=== PATIENT | male | born 1945 | race Caucasian/White ===

== ENCOUNTER → 2017-05-12 | Outpatient (CLI) | payer OTHER ==
[~2017-05-12] MED LIST: ALLERGY-TIME4 MG PO; ASPIRIN EC81 M1 PO; ASPIRIN81 M2 PO; B-122500 MCG SUBLING; B12INJ PO; BAYER CHEWABLE81 MG PO; CARVEDILOL25 MG PO; CARVEDILOL6.25 MG PO; CRESTOR40 MG PO; FISH OIL 1,0001 EAC5 PO; FISH OIL 1,2001 EAC4 PO; FUROSEMIDE 40 M40 MG PO; K-DUR10 MEQ PO; L-LYSINE 5500 MG/1 T PO; LASIX 20 MG TAB20 MG PO; MULTIVITAMINS PO; PHENTERMINE H37.5 MG PO; POTASSIUM20 PO; RANITIDINE 150150 M1 PO; RANITIDINE HCL300 M1 PO; VITAMIN D3400 UNI1 PO; ZINC CHELATE50 MG PO; ZINC GLUCONATE PO; [UNRECOGNIZED DRUG - OTHER]; [UNRECOGNIZED DRUG - OTHER] PO
--- NOTE | ~2017-05-12 | 2DMMODE ---
[facility] [place] [address] 2 D/M-MODE ECHOCARDIOGRAM Name: DAREN MARIE Room #: [facility]#: [id number] Admission: 05/12/17 Attend Phys: Ignacio Garza MD Discharge: Date of : 43 Date of Service: 05/13/17 0948 Report #: [id number] THIS REPORT FOR: //name// APPROVED REPORT Study performed: 05/12/2017 14:05:56 EXAM: Comprehensive 2D, Doppler, and color-flow Echocardiogram Patient Location: Out-Patient Status: routine BSA: 2.21 HR: 72 bpm BP: 115/88 mmHg Rhythm: Atrial Fibrillation Other Information Study Quality: Good Indications Atrial Fibrillation Chest Pain Hx: HTN, HLD, DM 2D Dimensions LVEF(%): 71.56 (>50%) IVSd: 10.91 (7-11mm) LVOT Diam: 20.25 (18-24mm) LVDd: 52.95 mm PWd: 10.78 (7-11mm) Ascending Ao: 37.32 (22-36mm) LVDs: 31.17 (25-40mm) Aortic Root: 37.22 mm Webb's LVEF: 71.56 % Volumes Left Atrial Volume (Systole) Single Plane 4CH: 70.35 mL Single Plane 2CH: 58.52 mL LA ESV Index: 33.00 mL/m2 Aortic Valve AoV Peak Werner.: 1.48 m/s AO Peak Gr.: 8.74 mmHg LVOT Max P.65 mmHg LVOT Max V: 0.81 m/s ELIAS Vmax: 1.77 cm2 Mitral Valve [facility] [address] [address] 2 D/M-MODE ECHOCARDIOGRAM Name: FRANKDAREN Trent Room #: [facility]#: [id number] Admission: 05/12/17 Attend Phys: Ignacio Garza MD Discharge: Date of : 43 Date of Service: 05/13/17 0948 Report #: [id number] E/A Ratio: 0.8 MV Decel. Time: 219.99 ms MV E Max Werner.: 0.64 m/s MV A Werner.: 0.77 m/s MV PHT: 63.80 ms IVRT: 59.98 ms Pulmonary Valve PV Peak Werner.: 1.04 m/s PV Peak Gr.: 4.35 mmHg Pulmonary Vein P Vein S: 0.56 m/s P Vein A: 0.20 m/s P Vein D: 0.47 m/s P Vein A Dur.: 99.2 msec P Vein S/D Ratio: 1.19 Tricuspid Valve TR Peak Werner.: 2.32 m/s RAP Estimate: 5.00 mmHg TR Peak Gr.: 21.53 mmHg PA Pressure: 27.00 mmHg Left Ventricle The left ventricle is normal size. There is normal left ventricular wall thickness. The left ventricular systolic function is normal. LVEF is 55-60%. Grade I - abnormal relaxation pattern. Right Ventricle The right ventricle is normal size. The right ventricular systolic function is normal. Atria The left atrium size is normal. The right atrium size is normal. Aortic Valve The aortic valve is normal in structure. No aortic regurgitation is present. There is no aortic valvular stenosis. Mitral Valve The mitral valve is normal in structure. There is mitral annular calcification. Trace mitral regurgitation. No evidence of mitral valve stenosis. Tricuspid Valve The tricuspid valve is normal in structure. There is trace to mild tricuspid regurgitation. The right atrial pressure is estimated at [address] [address] 2 D/M-MODE ECHOCARDIOGRAM Name: DAREN MARIE Room #: [facility]#: [id number] Admission: 05/12/17 Attend Phys: Ignacio Garza MD Discharge: Date of : 43 Date of Service: 05/13/17 0948 Report #: [id number] Pulmonic Valve The pulmonary valve is normal in structure. There is no pulmonic valvular regurgitation. Great Vessels Aortic root is borderline dilated. The ascending aorta is borderline dilated. IVC is normal in size and collapses >50% with inspiration, with an estimated PAP of 27mmHg. Pericardium There is no pericardial effusion. <Conclusion> The left ventricle is normal size. The left ventricular systolic function is normal. Grade I - abnormal relaxation pattern. The right ventricle is normal size. The aortic valve is normal in structure. Trace mitral regurgitation. There is trace to mild tricuspid regurgitation. The right atrial pressure is estimated at 27 mmHg. <ELECTRONICALLY SIGNED> By: Ignacio Garza MD 05/13/17947 7 7 Ignacio Garza MD /INF
== END ==
LOC: CV 13:02
DX: I48.91 Unspecified atrial fibrillation (principal); I10 Essential (primary) hypertension; E11.9 Type 2 diabetes mellitus without complications

== ENCOUNTER → 2017-05-13 | Outpatient (CLI) | payer OTHER | LOC: NUC | DX: N28.1 Cyst of kidney, acquired (principal); R07.89 Other chest pain ==

== ENCOUNTER → 2019-11-13 | Outpatient (CLI) | payer OTHER | LOC: SJCVC 13:08 | DX: I45.2 Bifascicular block (principal); R94.31 Abnormal electrocardiogram [ECG] [EKG]; I11.9 Hypertensive heart disease without heart failure; I48.91 Unspecified atrial fibrillation; E11.9 Type 2 diabetes mellitus without complications; E78.5 Hyperlipidemia, unspecified; G47.30 Sleep apnea, unspecified; Z95.0 Presence of cardiac pacemaker; Z90.49 Acquired absence of other specified parts of digestive tract; Z79.899 Other long term (current) drug therapy; Z87.891 Personal history of nicotine dependence ==

== ENCOUNTER → 2020-05-15 | Outpatient (CLI) | payer OTHER ==
[~2020-05-15] MED LIST changes: +FAMOTIDINE 20 M20 MG PO; +JANTOVEN10 MG PO; +METFORMIN HCL500 M3 PO; +PROBIOTIC1 EAC7 PO
== END ==
LOC: SJCVCIMAG 10:43
PROVIDERS: ATTEND Internal Medicine Cardiovascular Disease
DX: Z45.018 Encounter for adjustment and management of other part of cardiac pacemaker (principal); I45.10 Unspecified right bundle-branch block; R00.0 Tachycardia, unspecified; I48.91 Unspecified atrial fibrillation; I44.2 Atrioventricular block, complete; I10 Essential (primary) hypertension; E78.5 Hyperlipidemia, unspecified; E11.9 Type 2 diabetes mellitus without complications; R60.9 Edema, unspecified; Z79.01 Long term (current) use of anticoagulants; Z82.49 Family history of ischemic heart disease and other diseases of the circulatory system; Z87.891 Personal history of nicotine dependence; Z79.899 Other long term (current) drug therapy

== ENCOUNTER 2020-09-06 12:52 | Emergency (ER) | payer OTHER ==
[~2020-09-06] VITALS: Ht 180.3 cm; Wt 107.5 kg
[2020-09-06 14:27] LABS: ABSOLUTE NEUTROPHILS 3.7 thou/uL (1.4-8.2); BASOPHILS 0.3 % (0.0-2.0); EOSINOPHILS 1.4 % (0.0-3.0); HEMATOCRIT 43.4 % (42.0-52.0); LYMPHOCYTES 15.2 % (24.0-44.0); MCH 28.2 pg (26.0-34.0); MCHC 32.3 g/dL (28.0-37.0); MCV 87.3 fL (80.0-100.0); MONOCYTES 17.6 % (1.0-8.0); PLATELET COUNT 153 thou/uL (150-400); POLYS 65.5 % (36.0-66.0); RBC 4.97 mil/uL (4.50-6.00); RDW 14.2 % (10.5-14.5); WBC 5.7 thou/uL (4.0-11.0)
[2020-09-06 14:35] LABS: CALCIUM 8.6 mg/dL (8.5-10.1); CREATININE 1.9 mg/dL (0.7-1.3); MAGNESIUM 1.7 mg/dL (1.8-2.4); POTASSIUM 4.7 mmol/L (3.5-5.1)
[2020-09-06 14:51] LABS: INR 3.8; PROTIME 39.3 Seconds (9.3-11.4)
[2020-09-06 16:38] VITALS: BP 107/52
--- NOTE | 2020-09-07 11:17 | EKG ---
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 : 1945 Requested By: Mansoor Calero Order Number: [id number] MD: Wilian Beard Measurements Intervals [place] Rate: 88 P: 48 CT: 132 QRS: -59 QRSD: 133 T: 16 QT: 381 QTc: 461 Interpretive Statements Sinus rhythm RBBB and LAFB Baseline wander in lead(s) V1,V2 Compared to ECG 02/18/2020 13:26:54 No significant changes Electronically Signed On 09-07-2020 11:17:06 AUTO ELECTRICIAN by Wilian Beard [email or web address] <ELECTRONICALLY SIGNED> By: Wilain Beard MD, [facility] 09/07/20 1117 1359 1359 Wilian Beard MD, FACC /EPI
== END 2020-09-06 16:40 | disposition short-term general hospital (02) ==
LOC: ER 12:52
PROVIDERS: Emergency Medicine
DX: H54.62 Unqualified visual loss, left eye, normal vision right eye (principal); Z20.828 Contact with and (suspected) exposure to other viral communicable diseases; R19.7 Diarrhea, unspecified; I10 Essential (primary) hypertension; Z87.891 Personal history of nicotine dependence; Z79.01 Long term (current) use of anticoagulants; Z79.899 Other long term (current) drug therapy; Z95.0 Presence of cardiac pacemaker

== ENCOUNTER 2020-09-12 18:20 | Inpatient (IN) | payer OTHER ==
[~2020-09-12] VITALS: Ht 180.3 cm; Wt 100.7 kg
--- NOTE | ~2020-09-12 | O ---
[facility] [place] [address] OPERATIVE REPORT Name: DAREN MARIE Room #: 211-P ADM IN M.R.#: [id number] Admission: 09/12/20 Attend Phys: Wayne Dillon MD Discharge: Date of : 43 Report #: [id number] THIS REPORT FOR: cc: FAM - No family physician/PCP FAM - No family physician/PCP Venkat Valdez MD ~ DATE OF SERVICE: 09/16/2020 PREOPERATIVE DIAGNOSIS: Small bowel mass. POSTOPERATIVE DIAGNOSIS: Small bowel diverticulum. OPERATION: Diagnostic laparoscopy with laparoscopic small bowel resection with single anastomosis. SURGEON: Venkat Valdez MD ANESTHESIA: General. ESTIMATED BLOOD LOSS: 10 mL SPECIMEN: Small bowel. DESCRIPTION OF PROCEDURE: After informed consent was obtained, the patient was brought to the operating room and placed supine. SCDs were placed and working, preoperative antibiotics were administered, general anesthesia was induced. The abdomen was prepped and draped in the usual sterile fashion. A 10 mm incision was made above the umbilicus. Fascia was incised and a trocar was placed. Pneumoperitoneum was established. A right upper quadrant and left lower quadrant 5 mm trocars were placed under direct vision. The omentum was then swept superiorly. This allowed visualization of the ligament of Treitz. The small bowel was then run from the ligament of Treitz to the cecum under direct vision. Using atraumatic graspers, I ran the small bowel. Approximately 60 cm from the ligament of Treitz, there was an area with multiple small bowel diverticuli. There was one large diverticulum. There was hard material inside the diverticulum. This corresponded with the CT findings. I then extended the umbilical incision superiorly approximately 5 cm. I was then able to exteriorize the small bowel. Small bowel was brought out into the field. I transected proximal and distal to this diverticulum approximately 25 cm on each side. He did have other areas of diverticuli in the proximal small bowel. The mesentery was then ligated using the LigaSure device. There was excellent hemostasis. The specimen was removed. I then performed a [id number] functional end-to-end anastomosis. Small bowel was brought into apposition [id number]. It was stapled with a RYLEE blue load [address] [address] OPERATIVE REPORT Name: DAREN MARIE Room #: 211-P [facility] IN M.R.#: [id number] Admission: 09/12/20 Attend Phys: Wayne Dillon MD Discharge: Date of : 43 Report #: [id number] common enteroenterostomy was closed with a RYLEE-75 stapler as well. There was good application of the sahara without crossing the staple lines. The mesentery was then closed with interrupted 3-0 silk. The anastomosis was placed back into the abdomen. The fascia was closed with a running 0 PDS suture. Skin was closed with 4-0 Monocryl. Incisions were dressed with Steri-Strips. COMPLICATIONS: None. DISPOSITION: The patient was taken to recovery in satisfactory condition. By: 1338 1345 Venkat Valdez MD /nt
[2020-09-12 18:26] VITALS: BP 111/61
[2020-09-12 21:47] LABS: ABSOLUTE NEUTROPHILS 9.2 thou/uL (1.4-8.2); BASOPHILS 0.4 % (0.0-2.0); EOSINOPHILS 0.9 % (0.0-3.0); HEMATOCRIT 34.9 % (42.0-52.0); HEMOGLOBIN 11.4 gm/dL (14.0-18.0); LYMPHOCYTES 10.4 % (24.0-44.0); MCH 27.9 pg (26.0-34.0); MCHC 32.7 g/dL (28.0-37.0); MCV 85.4 fL (80.0-100.0); MONOCYTES 8.7 % (1.0-8.0); PLATELET COUNT 208 thou/uL (150-400); POLYS 79.6 % (36.0-66.0); RBC 4.09 mil/uL (4.50-6.00); RDW 13.6 % (10.5-14.5); WBC 11.5 thou/uL (4.0-11.0)
[2020-09-12 21:56] LABS: ANION GAP 6 mmol/L (7-16); BUN 42 mg/dL (7-18); CALCIUM 9.2 mg/dL (8.5-10.1); CHLORIDE 104 mmol/L (98-107); CO2 29 mmol/L (21-32); CREATININE 1.3 mg/dL (0.7-1.3); GLUCOSE 107 mg/dL (74-106); SODIUM 139 mmol/L (136-145)
[2020-09-12 22:02] LABS: ALBUMIN 2.9 g/dL (3.4-5.0); DIRECT BILIRUBIN < 0.1 mg/dL (<0.1-0.2); LIPASE 78 U/L (73-393); SGOT 22 U/L (15-37); SGPT 26 U/L (16-63); TOTAL BILIRUBIN 0.4 mg/dL (0.2-1.0); TOTAL PROTEIN 6.3 g/dL (6.4-8.2)
[2020-09-12 22:03] LABS: APTT 66.2 Seconds (24.5-32.8)
[2020-09-12 22:17] LABS: INR 14.4
[2020-09-12 22:47] VITALS: BP 111/61
[2020-09-12 23:13] VITALS: BP 111/61
[2020-09-12 23:39] VITALS: BP 121/67
[2020-09-12 23:54] LABS: PROTIME 153.8 Seconds (9.3-11.4)
[2020-09-13 00:02] LABS: INR 14.9
[2020-09-13 03:58] LABS: HEMATOCRIT 29.7 % (42.0-52.0); HEMOGLOBIN 9.9 gm/dL (14.0-18.0); MCH 28.8 pg (26.0-34.0); MCHC 33.2 g/dL (28.0-37.0); MCV 86.7 fL (80.0-100.0); RBC 3.43 mil/uL (4.50-6.00); RDW 13.7 % (10.5-14.5)
[2020-09-13 03:59] LABS: CALCIUM 8.5 mg/dL (8.5-10.1); CREATININE 1.3 mg/dL (0.7-1.3); POTASSIUM 4.4 mmol/L (3.5-5.1)
[2020-09-13 04:45] VITALS: BP 115/70
--- NOTE | 2020-09-13 06:45 | NUR ---
PT ARRIVED TO ROOM 211 FROM ER C/O ABD PAIN PRN PAIN MED GIVEN IV FLUIDS INFUSING, PROTONIX GTT STARTED, SCDS PLACED, REMINDED PT HE WAS NPO AFTER MNOC, HAT IN BATHROOM FOR STOOL SAMPLES OB COLLECTED AND SENT TO LAB, INR REMAINS ELEVATED, RESTING QUIETLY IN ROOM, WILL CON'T TO MONITOR PER PPOC.
[2020-09-13 11:40] VITALS: BP 125/80
[2020-09-13 15:34] LABS: PROTIME 20.7 Seconds (9.3-11.4)
[2020-09-13 16:31] VITALS: BP 102/74
--- NOTE | 2020-09-13 17:29 | NUR ---
ASSESSMENT CHARTED - MEDS PER NOV - GIVEN VIT K IV ORDERED - INR POST VIT K DOWN TO 2.0. PT UP TO THE BATHROOMTO HAD STOOL AND PASSES ONLY GAS. UNABLE to sent spec to lab. MARAH CLEAR LIQUID DIET. FLUIDS AND ROTONIX CONTIINUE ORDERED. PT AMBULATED TO BATHROOM WITH STANDBY ASSIST. INTO SEE PATIENT THIS SHIFT. PATIENT AT TIME MAKES SOME QUESTIONALBE COMMENTS - UNSURE IF THIS IS DUE TO BE HARD OF HEARING OR MENTAK STATUS. PT WITH NO CO'S PAIN OF NAUSEA. NO CO'S AT THE PRESENT TIME.
[2020-09-13 20:19] VITALS: BP 120/68
[2020-09-14 00:32] VITALS: BP 117/65
[2020-09-14 04:16] LABS: HEMATOCRIT 28.1 % (42.0-52.0); MCHC 32.2 g/dL (28.0-37.0); MCV 90.2 fL (80.0-100.0); RBC 3.11 mil/uL (4.50-6.00); RDW 14.2 % (10.5-14.5); WBC 8.7 thou/uL (4.0-11.0)
[2020-09-14 04:25] LABS: INR 1.4; PROTIME 14.6 Seconds (9.3-11.4)
[2020-09-14 04:37] LABS: ALBUMIN 2.1 g/dL (3.4-5.0); CALCIUM 8.3 mg/dL (8.5-10.1); CREATININE 1.2 mg/dL (0.7-1.3); POTASSIUM 4.7 mmol/L (3.5-5.1)
[2020-09-14 05:00] VITALS: BP 122/74
--- NOTE | 2020-09-14 05:52 | NUR ---
pt resting quietly in room until he awoke confused not knowing where he was, incont of urine, reoriented and now up in chair watching tv, no c/o pain, vss, remains npo since mnoc for possible surg. today monitering labs, will con't to monitor per ppoc.
[2020-09-14 07:00] VITALS: BP 120/68
[2020-09-14 11:00] VITALS: BP 111/71
[2020-09-14 16:00] VITALS: BP 126/81
--- NOTE | 2020-09-14 17:27 | NUR ---
ASSESSMENT CHARTED - IV FLUIDS AND PROTONIX CONTINUE ORDERED - GIVEN GLUCOSE GEL FOR BLLOD SUGAR OF 71 AT LUNCH - 79 AT DINNER. ONE QUESTTIONS MENTATION AT TIMES. HE IS ORIENTED TO TIME , PLACE ETC BUT CONVERSTAION WITH HIM SEEMS TO NOT FLOW WELL. HE ASKS TOTALLY OFF POINT QUESTIONS AND ASKS THE SAME QUESTION OVER AND OVER AGIAN - WHEN ONE TELLS THE PATIENT THAT HIS CONVERSTAION IS "OFF" HE LAUGHS TO TRY AND COVER IT UP OR GIVES REASONS THAT ARE NOT VALID LIKE " I AM DEHYDRATED", THERE IS SOMETHING THAT IS JUST NOT RIGHT. UP TO THE BATHROOM - HAD BM - BLOOD PRESENT - SPEC SENT TO THE LAB. PT AT THE BEDSIDE FOR THE AFTERNOON. SHE AT TIMES CAN APPEAR MENTATION DELAROSA LIKE HER . PT AND WATCHIING TV AT THE PRESENT TIME.
[2020-09-14 19:00] VITALS: BP 136/53
[2020-09-15 04:00] VITALS: BP 114/74
--- NOTE | 2020-09-15 04:55 | NUR ---
ASSESSMENTS CHARTED, MEDS CHARTED GIVEN. PATIENT RESTING IN BED DURING SHIFT. ON PROTONIX AND MAINTENANCE FLUIDS DURING SHIFT. ON 5 LITERS NASAL CANNULA AT NIGHT. LABS CAME BACK NEGATIVE FOR DIGESTIVE TRACK INFECTIONS. PATIENT WAS CLEARED BY CARDIOLOGY FOR SURGERY. NOW WAITING FOR SURGERY SCHEDULE. FALL PRECAUTIONS IN PLACE DURING SHIFT. DENIED PAIN.
[2020-09-15 07:23] VITALS: BP 123/78
[2020-09-15 10:25] LABS: HEMATOCRIT 29.4 % (42.0-52.0); HEMOGLOBIN 9.5 gm/dL (14.0-18.0); MCH 28.3 pg (26.0-34.0); MCHC 32.4 g/dL (28.0-37.0); MCV 87.6 fL (80.0-100.0); RBC 3.35 mil/uL (4.50-6.00); RDW 13.9 % (10.5-14.5); WBC 8.2 thou/uL (4.0-11.0)
[2020-09-15 11:25] VITALS: BP 111/67
--- NOTE | 2020-09-15 11:39 | EKG ---
[address] [facility] [address] ELECTROCARDIOGRAM REPORT Name: TERESEDAREN BLACKMON Room #: 211- ADM IN M.R.#: [id number] Admission: 09/12/20 Attend Phys: Wayne Dillon MD Discharge: Date of : 43 Report #: [id number] [facility] Test Date: 2020-09-15 Test Time: 11:06:14 Pat Name: DAREN MARIE Department: Room: 211 P Gender: M Prospect Manager: : 1945 Requested By: Ramesh Beebe Order Number: [id number] MD: Ramesh Beebe Measurements Intervals [place] Rate: 67 P: 57 MO: 136 QRS: -54 QRSD: 134 T: 5 QT: 406 QTc: 429 Interpretive Statements Sinus rhythm RBBB and LAFB Baseline wander in lead(s) V1,V5 Compared to ECG 09/06/2020 13:59:20 No significant changes Electronically Signed On 09-15-2020 11:38:49 CARCASS TRIMMER by Ramesh Beebe [email or web address] <ELECTRONICALLY SIGNED> By: Ramesh Beebe MD 09/15/20 1138 1106 1106 Ramesh Beebe MD /EPI
[2020-09-15 17:15] VITALS: BP 120/76
--- NOTE | 2020-09-15 18:37 | NUR ---
ASSUMMED PT CARE AT APPROXIMATELY 0700. PT A&O X4. ASSESSMENT CHARTED. FALL PRECAUTIONS IN PLACE. PT DENIES HAVING CHEST PAIN. PT DENIES HAVING SOB. PT DENIES HAVING ACUTE PAIN. VITAL SIGNS STABLE. BLOOD SUGARS STABLE. EDUCATED PT AND PT'S FAMILY ABOUT POC. PT'S AND PT'S FAMILY STATED UNDERSTANDING AND DENIED HAVING FURTHER QUESTIONS. INFORMED DR. ZAMORA/GI ABOUT PT HAVING A LARGE BLACK TARRY STOOL. INFORMED DR. ZAMORA OF PT'S HGB. DR. ZAMORA STATED UNDERSTANDING AND DENIED HAVING FURTHER ORDERS. PT UP TO CHAIR THROUGHOUT SHIFT. PT COMFORTABLE, PT DENIES HAVING FURTHER CONCERNS.
[2020-09-15 20:20] VITALS: BP 125/78
[2020-09-16 04:45] VITALS: BP 103/57
--- NOTE | 2020-09-16 06:43 | NUR ---
ASSESSMENTS CHARTED, MEDS CHARTED GIVEN. PATIENT HAS BEEN NPO SINCE MIDNIGHT FOR SURGERY TODAY. A ABDOMINAL MASS WAS FOUND. YESTERDAY HAD TARRY STOOL. DENIED PAIN. FALL PRECAUTIONS IN PLACE DURING SHIFT.
[2020-09-16 08:00] VITALS: BP 109/54
[2020-09-16 11:27] LABS: INR 1.5; PROTIME 15.4 Seconds (9.3-11.4)
--- NOTE | 2020-09-16 12:20 | NUR ---
Bpci letter issued to patient in conjunction with admission packet copy given by registration.
[2020-09-16 14:22] VITALS: BP 90/53
--- NOTE | 2020-09-16 19:46 | NUR ---
PATIENT TRANSFERRED FROM [address] [place] [address] REPORT RECEIVED FROM BRIANA/ARIS. PATIENT ALERT AND ORIENTED X 4. PATIENT ON BEDREST, DUE TO PROCEDURE LAP WITH SMALL BOWEL RESECTION. PATIENT ARRIVED ON THE UNIT ABOUT 1800. NO C/O PAIN JUST C/O SORENESS. PATIENT IS NPO AT THIS TIME. REPORT GIVEN TO BRIDGET/ARIS.
[2020-09-16 20:13] VITALS: BP 104/70
--- NOTE | 2020-09-16 21:00 | NUR ---
RECEIVED PT'S CARE AROUND 0719; PT. ON BED; ALERT; DURING AM ASSESSMENT PT. AOC4; NO C/O PAIN; NPO; EDUCATED ABOUT POC AND GOALS THROUGH THE DAY; FALL PREVENTIONS' ST. UNDERTANDING; GONE FOR PROCEDURE AFTER 1000; CAME BACK AFTER 1300; PT. ON 02; SBP ON THE 90s; PHYSICIAN NOTIFIED; ORDERS RECEIVED; PT. MS; PER DR. MANGO DURÁN TO TRANSFER TO [place]; PT'S CARE TRANSFER TO ARIS WARREN; ASSESSMENT CHARGED; SR ON THE MONITOR; PASSED ON REPORT;
[2020-09-17 04:01] VITALS: BP 103/55
--- NOTE | 2020-09-17 05:42 | NUR ---
Assumed pt care at 1900. A/OX4,VSS. Pt post op lap partial bowel resection with 4 lap sites C/D/I. C/o soreness more with movement, medicated per EMAR with relief reported. Voiding per urinal, reports hx hesistant/dribbling and wears briefs at home. Pt's normally up ad rupal,but hasn't gotten up this shift. SR on telemetry,has a pacemaker. NPO with IVF infuisng via RAC w/o any problems noted. Resting quietly O2 in place @ 5L/NC.Will continue to monitor pt.
[2020-09-17 07:40] VITALS: BP 100/52
--- NOTE | 2020-09-17 11:06 | NUR ---
Nutrition: Pt with poor intake several days prior to admit and NPO/clear liquids x 4 days, POD 1 small bowel resection. Severe weight loss of 6% within 2 weeks. If unable to advance diet within 24 hrs, REC change IVFs to Clinimix PPN at 80 mL/hr, add 250 mL 20% lipids daily to prevent further nutritional decline.
--- NOTE | 2020-09-17 11:54 | NUR ---
ASSUMED PT CARE THIS AM. PT COOPERATIVE AND MAKES NEEDS KNOWN. AMBULATORY TO THE BATHROOM. MINIMAL PAIN NOTED DURING ACTIVITY AND REST. IV PATENT, FLUIDS INFUSING. SURGICAL SITES ARE C/D/I. NO REPORTS OF NAUSEA. TRACE EDEMA ON LOWER EXTREMITIES NOTED. ON ROOM AIR DURING THE DAY.
--- NOTE | 2020-09-17 15:20 | NUR ---
PT ADMITTED RELATED TO ELEVATED INR; GIB/ABDOMINAL MASS. CM REVIEWED CHART AND SPOKE WITH CARE TEAM. CM MET WITH PT AT BEDSIDE THIS DAY. PT IS A&O X4. CM ROLE INTRODUCED. PT INDICATED THAT HE RESDIES IN A HOSUE WITH HIS SIG OTHER WITH 2 STEPS TO ENTER AND NO STEPS INSIDE. PT INDICATED THAT HE HAD BEEN INDEPENDENT WITH GAIT AND ADLS PROGRAM DIRECTOR AIR TALENT. PT STATED THAT HE NEEDED ASSIST WITH LED PROGRAM DIRECTOR AIR TALENT DUE TO LIZY PAIN. PT INDICATED HE HAD DONE OP PT IN PAST. PT'S PCP IS DR. HARVEY ORTIZ IN [place], [place]. PT HAD LAP SB RESCETION YESTERDAY. CM TO FOLLOW INDICATED WITH DC PLANNING.
[2020-09-17 19:34] VITALS: BP 109/68
[2020-09-18 03:44] VITALS: BP 102/63
--- NOTE | 2020-09-18 07:49 | NUR ---
Assumed pt care at 1900. A/OX4,VSS.C/o abd pain and requested for change in pain meds since he doesn't want Fentanyl it's too strong, Kym GAS WELDER APPRENTICE notified. order for Tramadol obtained and pt reported relief. Has one midline incision with dsg C/D/I and 3 lap sites covered w/dermabond. Up with SBA to bathroom. SR on telemetry.
[2020-09-18 08:11] VITALS: BP 113/64
[2020-09-18 08:22] LABS: HEMATOCRIT 24.4 % (42.0-52.0); HEMOGLOBIN 7.9 gm/dL (14.0-18.0); MCH 28.6 pg (26.0-34.0); MCHC 32.6 g/dL (28.0-37.0); MCV 87.7 fL (80.0-100.0); RBC 2.78 mil/uL (4.50-6.00); RDW 14.2 % (10.5-14.5); WBC 8.2 thou/uL (4.0-11.0)
--- NOTE | 2020-09-18 14:14 | HC ---
[facility] [place] [address] CONSULTATION Name: DAREN MARIE Room #: 454-P ADM IN M.R.#: [id number] Admission: 09/12/20 Attend Phys: Wayne Dillon MD Discharge: Date of : 43 Report #: [id number] THIS REPORT FOR: cc: FAM - No family physician/PCP FAM - No family physician/PCP Ramesh Beebe MD ~ DATE OF SERVICE: 09/14/2020 CARDIOLOGY CONSULTATION REASON FOR CONSULTATION: Preoperative clearance. 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 The patient presents to the hospital with lower GI bleeding, found to have a hemorrhagic small bowel mass. His INR was 14 on presentation, which has since been reversed. We were asked to see him for preoperative evaluation. Speaking with the patient, he denies any chest pain or chest tightness. He reports no shortness of breath. He denies any PND or orthopnea. He denies presyncope or syncope. REVIEW OF SYSTEMS: A 12-point review of systems was performed and was negative other when I mentioned above. PAST MEDICAL HISTORY: As above. SOCIAL HISTORY: Does not smoke. FAMILY HISTORY: Noncontributory. ALLERGIES: None. MEDICATIONS: Have been reviewed. PHYSICAL EXAMINATION: VITAL SIGNS: Temperature 36.3, pulse 80, respiration 20, blood pressure 111/71, sats 100%. GENERAL: He is alert and oriented x 3, in no acute distress. HEENT: Oropharynx clear. Mucous membranes are moist. No scleral icterus. NECK: Supple, with no thyromegaly or carotid bruits. CARDIOVASCULAR: Heart is regular rate and rhythm with no murmurs, rubs or gallops. CHEST: Lungs are clear to auscultation bilaterally. [facility] [address] [place] [address] CONSULTATION Name: DAREN MARIE Room #: 454-P [facility]#: [id number] Admission: 09/12/20 Attend Phys: Wayne Dillon MD Discharge: Date of : 43 Report #: [id number] ABDOMEN: Soft, nontender, nondistended with no hepatosplenomegaly. EXTREMITIES: There is no clubbing, cyanosis or edema. NEUROLOGIC: Cranial nerves 2-12 are intact. LABORATORY DATA: White count 8, hemoglobin 9, platelets 168. INR 1.4. Sodium 140, potassium 4.7, creatinine 1.2. Telemetry reveals normal sinus rhythm with no arrhythmias noted. ASSESSMENT: 1. Gastrointestinal bleeding. 2. Atrial fibrillation. 3. Sick sinus syndrome, status post pacemaker implantation. PLAN: The patient is stable from a cardiovascular standpoint with no symptoms to suggest angina. The patient can proceed with his surgical intervention. Anticoagulation can be resumed once his bleeding issues have resolved. Thank you for allowing us to participate in his care. We will follow. <ELECTRONICALLY SIGNED> By: Ramesh Beebe MD 09/18/20 1414 1304 1403 Ramesh Beebe MD /nt
--- NOTE | 2020-09-18 15:07 | PATH ---
[facility] [address] [address] PATHOLOGY RPT PROCEDURE Name: HARINDER MARIE Room #: 454-P [facility] IN M.R.#: [id number] Admission: 09/12/20 Date of : 43 Discharge: Report #: [id number] Path Case #: [id number] [facility] Accession Number: [id number] . 01 Material submitted: . small bowel - SMALL BOWEL . 01 Clinical history: . SMALL BOWEL MASS . 02 Diagnosis: Small bowel, resection: - Ischemic changes along with transmural necrosis as well as perforation. - Margins with viable mucosa. - Negative for malignancy. (IUV:[place]; 09/18/2020) QMS 09/18/2020 1403 Local . 02 Electronically signed: . Alexandra Tuttle MD, Pathologist NPI- [id number] . 01 Gross description: . The specimen is received in formalin, labeled "Harinder Marie, small bowel" and consists of a segment of small bowel measuring 30.0 cm in length and up to 3.8 cm in diameter with sahara at both margins. The pericolic fat measures up to 4.5 cm. The serosa is pink and glistening with focal blue tattoo in the mid aspect. Adjacent the tattoo the serosa/pericolic fat surface is firm with white adhesions/exudate. Opening reveals a pink-boone mucosa with no masses. Serial sectioning reveals multiple mucosal lined out pouches/diverticula. One of the cavities is markedly pink red with possible necrosis/perforation. Additionally received in the container is a segment of bowel measuring 6.0 x 2.4 x 2.0 cm with a staple line. Opening shows an unremarkable pink-boone mucosa. Academic Coach sections are submitted as follows: . A1-A2: Margins A3-A5: Out pouch with necrosis A6: Additional out pouch A7: Additionally received tissue (SDY; 09/17/2020) SYU/SYU 09/17/2020 1501 Local . 02 Pathologist provided ICD-10: K63.1, K55.069 . 02 CPT . [address] [address] PATHOLOGY RPT PROCEDURE Name: HARINDER MARIE W Room #: 454-P ADM IN M.R.#: [id number] Admission: 09/12/20 Date of : 43 Discharge: Report #: [id number] Path Case #: [id number] Specimen Comment: A courtesy copy of this report has been sent to [phone] Specimen Comment: Report sent to Performed at: [address], [place], [place] [id number] MD Brian Peter MD Phone: [phone] Performed at: [address] [id number] MD Alexandra Tuttle MD Phone: [phone]
[2020-09-18 15:41] VITALS: BP 111/63
--- NOTE | 2020-09-18 16:38 | NUR ---
PT STARTED ON SOFT DIET THIS AFTERNOON. NO BM YET. CARE TEAM INDICATED PROBABLE DC HOME TOMORROW. CM TO FOLLOW INDICATED WITH DC PLANNING.
--- NOTE | 2020-09-18 19:41 | NUR ---
ASSUMED CARE OF THE PATIENT AT 0715, PATIENT ALERT AND ORIENTED X 4. PATIENT UP WITH SBA. PATIENT VOIDS PER URINAL. NO C/O NAUSEA OR PAIN THIS SHIFT. PATIENT DIET UPGRADED TO SOFT FOR DINNER, NO LACTUSE, NO GLUTEN. IV FLUIDS D/C THIS SHIFT. DRESSINGS TO MID-ABDOMEN, AND LAP SITES C/D/I. ACCU'S CHECKS AC/HS. NO COVERAGE ALL BLOOD SUGAR WNL. DINA LE EDEMA/SCD'S. DR COBIAN CALLED, NO BM THIS SHIFT, RECEIVED ORDER FOR DUL. SUPP. X 1. WILL CONTINUE TO MONITOR. POSSIBLE DISCHARGE TOMORROW IF MEALS TOLERATED.
[2020-09-18 20:15] VITALS: BP 112/69
[2020-09-19 07:35] VITALS: BP 106/69
--- NOTE | 2020-09-19 07:56 | NUR ---
PROGRESS PT A/O X4 UP WITH SBA VOIDS PER URINAL DENIES PAIN SLEPT ALL NIGHT AND HOPES TO DC HOME TODAY.
[2020-09-19] MEDS ORDERED: TRAMADOL 50 MG50 MG PO (08:31)
[2020-09-19] MEDS ORDERED: JANTOVEN5 MG PO (08:32)
[2020-09-19 11:17] VITALS: BP 106/69
--- NOTE | 2020-09-19 12:42 | NUR ---
Received awake on bed. Due medications given as prescribed, able to swallow meds w/o difficulty.Vital signs stable. On telemetry; no complains and signs of chest pain, crushing sensation and heaviness; with pacemaker. On room air during daytime and O2 at 5lpm via nasal cannula at HS. Assisted in ADLs. On carb controlled diet- tolerating well; no nausea, no vomiting and no abdominal pain noted. On blood sugar monitoring, taken and recorded accordingly. Continent of bowel and bladder, able to go to the toilet with standby assist. Falls bundle in place. With Edema at LE- advised pt to keep extremities elevated. With SL at R AC- intact and flushing well. With surgical wound at abdomen, C/D/I- gauze + transparent dressing in place; dermabond- C/D/I; no signs of bleeding and swelling noted. Pt seen and examined by Dr Tomas- discharge orders made; pt and CM informed- no home needs. Discharge instructions, follow up schedule, post op instructions and follow up given and instruction. Discharge forms signed. IV discontinued; telemetry stopped, monitor returned. Able to have a bowel movement- charted. Fetched by his relative; Brought out of the unit via wheelchair with his personal belongings.
--- NOTE | 2020-09-19 13:17 | NUR ---
CARE TEAM INDIATED THAT PT IS MEDICALLY STABLE TO DISHCARGE HOME THIS DAY. PT IS TO DC HOME TO SELF CARE. NO OTHER CM INTERVENTION INDICATED. CASE CLOSED.
== END 2020-09-19 12:00 | disposition home or self-care (01) | DRG 329 ==
LOC: ER 18:20 → 2N 22:56 → EROBS 22:56 → 2N 23:12 → 4W 09-16 18:06
PROVIDERS: Anesthesiology; Hospitalist; Nurse Practitioner; Nurse Practitioner Adult Health; Nurse Practitioner Family; ADMIT Internal Medicine; ATTEND Internal Medicine
PROC: 0DB84ZZ Excision of Small Intestine, Percutaneous Endoscopic Approach (ICD-10-PCS; principal; 2020-09-16)
DX: K57.11 Diverticulosis of small intestine without perforation or abscess with bleeding (principal); E43 Unspecified severe protein-calorie malnutrition; D62 Acute posthemorrhagic anemia; D68.9 Coagulation defect, unspecified; R19.09 Other intra-abdominal and pelvic swelling, mass and lump; I10 Essential (primary) hypertension; I49.5 Sick sinus syndrome; E78.5 Hyperlipidemia, unspecified; K21.9 Gastro-esophageal reflux disease without esophagitis; E11.9 Type 2 diabetes mellitus without complications; H54.61 Unqualified visual loss, right eye, normal vision left eye; G47.33 Obstructive sleep apnea (adult) (pediatric); I48.0 Paroxysmal atrial fibrillation; E66.9 Obesity, unspecified; K52.9 Noninfective gastroenteritis and colitis, unspecified; E86.0 Dehydration; Z95.0 Presence of cardiac pacemaker; Z87.891 Personal history of nicotine dependence; Z68.31 Body mass index [BMI] 31.0-31.9, adult; Z90.49 Acquired absence of other specified parts of digestive tract; Z88.8 Allergy status to other drugs, medicaments and biological substances; Z79.899 Other long term (current) drug therapy; Z20.822 Contact with and (suspected) exposure to COVID-19
CPT/HCPCS: 10047; 10081; 50010; 50093; 50101; 50555; 51708; 51712; 52265; 52266; 53307; 53314; 56462; 56525; 56526; 56528; 57092; 62110; 62900; 70005

== ENCOUNTER → 2020-09-27 | Outpatient (CLI) | payer OTHER ==
[~2020-09-27] MED LIST changes: +JANTOVEN5 MG PO; +TRAMADOL 50 MG50 MG PO
== END ==
LOC: SJCVC 13:45
PROVIDERS: ATTEND Internal Medicine Cardiovascular Disease
DX: I48.0 Paroxysmal atrial fibrillation (principal); R94.31 Abnormal electrocardiogram [ECG] [EKG]; I44.4 Left anterior fascicular block; I44.2 Atrioventricular block, complete; R06.00 Dyspnea, unspecified; R60.9 Edema, unspecified; E11.9 Type 2 diabetes mellitus without complications; E78.5 Hyperlipidemia, unspecified; G47.30 Sleep apnea, unspecified; Z95.0 Presence of cardiac pacemaker; Z90.49 Acquired absence of other specified parts of digestive tract; Z98.890 Other specified postprocedural states; Z88.8 Allergy status to other drugs, medicaments and biological substances; Z79.01 Long term (current) use of anticoagulants; Z79.899 Other long term (current) drug therapy; Z87.891 Personal history of nicotine dependence; Z82.49 Family history of ischemic heart disease and other diseases of the circulatory system

== ENCOUNTER → 2020-10-25 | Outpatient (CLI) | payer OTHER | LOC: SJCVC 13:17 | PROVIDERS: ATTEND Internal Medicine Cardiovascular Disease | DX: Z51.81 Encounter for therapeutic drug level monitoring (principal); Z79.01 Long term (current) use of anticoagulants ==

== ENCOUNTER → 2020-11-25 | Outpatient (CLI) | payer OTHER | LOC: SJCVC 13:19 | PROVIDERS: ATTEND Internal Medicine Cardiovascular Disease | DX: K26.4 Chronic or unspecified duodenal ulcer with hemorrhage (principal); Z88.8 Allergy status to other drugs, medicaments and biological substances; Z87.891 Personal history of nicotine dependence; Z79.01 Long term (current) use of anticoagulants; Z79.84 Long term (current) use of oral hypoglycemic drugs; Z79.899 Other long term (current) drug therapy ==

== ENCOUNTER → 2020-12-24 | Outpatient (CLI) | payer OTHER | LOC: SJCVC 12:53 | PROVIDERS: ATTEND Internal Medicine Cardiovascular Disease | DX: D64.9 Anemia, unspecified (principal); G47.33 Obstructive sleep apnea (adult) (pediatric); I10 Essential (primary) hypertension; E78.5 Hyperlipidemia, unspecified; Z68.34 Body mass index [BMI] 34.0-34.9, adult; Z79.01 Long term (current) use of anticoagulants; Z79.899 Other long term (current) drug therapy ==

== ENCOUNTER → 2021-03-28 | Outpatient (CLI) | payer OTHER | LOC: SJCVC 13:21 | PROVIDERS: ATTEND Internal Medicine Cardiovascular Disease | DX: R94.31 Abnormal electrocardiogram [ECG] [EKG] (principal); I48.0 Paroxysmal atrial fibrillation; I44.2 Atrioventricular block, complete; R06.00 Dyspnea, unspecified; R60.9 Edema, unspecified; E11.9 Type 2 diabetes mellitus without complications; E78.5 Hyperlipidemia, unspecified; G47.30 Sleep apnea, unspecified; Z87.891 Personal history of nicotine dependence; Z95.0 Presence of cardiac pacemaker; Z79.84 Long term (current) use of oral hypoglycemic drugs; Z79.01 Long term (current) use of anticoagulants; Z79.899 Other long term (current) drug therapy ==

== ENCOUNTER → 2021-10-16 | Outpatient (CLI) | payer OTHER | LOC: SJCVCIMAG 08:54 | PROVIDERS: ATTEND Internal Medicine Cardiovascular Disease | DX: R94.31 Abnormal electrocardiogram [ECG] [EKG] (principal); I45.4 Nonspecific intraventricular block; I05.9 Rheumatic mitral valve disease, unspecified; R06.00 Dyspnea, unspecified; I48.0 Paroxysmal atrial fibrillation; I10 Essential (primary) hypertension; E11.9 Type 2 diabetes mellitus without complications; E78.5 Hyperlipidemia, unspecified; G47.30 Sleep apnea, unspecified; Z95.0 Presence of cardiac pacemaker; Z91.011 Allergy to milk products; Z91.018 Allergy to other foods; Z79.84 Long term (current) use of oral hypoglycemic drugs; Z79.899 Other long term (current) drug therapy; Z79.01 Long term (current) use of anticoagulants; Z87.891 Personal history of nicotine dependence; Z82.49 Family history of ischemic heart disease and other diseases of the circulatory system; Z51.81 Encounter for therapeutic drug level monitoring ==

== ENCOUNTER → 2021-11-10 | Outpatient (CLI) | payer OTHER | LOC: SJCVCIMAG 10-30 09:15 | PROVIDERS: ATTEND Internal Medicine Cardiovascular Disease | DX: I48.0 Paroxysmal atrial fibrillation (principal); I10 Essential (primary) hypertension; I25.10 Atherosclerotic heart disease of native coronary artery without angina pectoris; R06.00 Dyspnea, unspecified; Z95.0 Presence of cardiac pacemaker ==